=== PATIENT | female | born 1995 | race Caucasian/White ===

== ENCOUNTER 2021-10-14 00:07 | Inpatient (IN) | payer SELFPAY ==
[2021-10-14] MEDS: Lactated Ringers 1,000 ML IV SCH ×2 (00:10→14:49)
[2021-10-14] MEDS ORDERED: Terbutaline 1 MG/ML SDV SUBCUT PRN (00:12)
[2021-10-14] MEDS ORDERED: Misoprostol 200 MCG Tab PO PRN (00:12)
[2021-10-14] MEDS ORDERED: Lidocaine 1% 50 ML MDV INJECT PRN (00:12)
[2021-10-14] MEDS ORDERED: Sodium Chloride 0.9% 10 ML Syringe FLUSH PRN (00:12)
[2021-10-14] MEDS ORDERED: Carboprost Tromethamine 250 MCG/1 ML Amp IM PRN (00:12)
[2021-10-14] MEDS ORDERED: Sodium Chloride 0.9% 2.5 ML Syringe FLUSH PRN (00:12)
[2021-10-14] MEDS ORDERED: Sodium Chloride 0.9% 20 ML SDV IV PRN (00:12)
[2021-10-14] MEDS ORDERED: Misoprostol 25 MCG (1/4 of 100 MCG) Tab VAG PRN (00:12)
[2021-10-14] MEDS ORDERED: Tranexamic Acid 1,000 MG in Sodium Chloride 0.9% 100 ML IV PRN (00:12)
[2021-10-14] MEDS ORDERED: Methylergonovine 0.2 MG/1 ML Amp IM PRN (00:12)
[2021-10-14] MEDS ORDERED: Butorphanol 1 MG/ML SDV IVPUSH PRN (00:12)
[2021-10-14] MEDS ORDERED: Water For Irrigation,Sterile 1,000 ML Container IRR PRN (00:12)
[2021-10-14] MEDS ORDERED: Oxytocin/0.9 % Sodium Chloride 30 UNIT/500 ML BAG IV SCH ×2 (00:15)
[2021-10-14] MEDS: Misoprostol 25 MCG (1/4 of 100 MCG) Tab VAG PRN ×2 (04:43→08:46)
[2021-10-14] MEDS ORDERED: ePHEDrine 50 MG/ML SDV IVPUSH PRN ×2 (11:33)
[2021-10-14] MEDS ORDERED: Phenylephrine HCl In 0.9% NaCl 1 MG/10 ML Vial IVPUSH SCH (11:45)
[2021-10-14] MEDS ORDERED: Ropivacaine HCl/PF 400 MG in Premix Bag 1 BAG EPIDUR SCH (11:45)
[2021-10-14] MEDS ORDERED: Acetaminophen 500 MG Tab PO PRN (16:32)
[2021-10-14] MEDS ORDERED: Witch Hazel Medicated Pads 40/Jar TOP PRN (16:32)
[2021-10-14] MEDS ORDERED: Lanolin 100% Cream 7 GM Tube TOP PRN (16:32)
[2021-10-14] MEDS ORDERED: Bisacodyl 10 MG Supp RECTAL PRN (16:32)
[2021-10-14] MEDS ORDERED: Benzocaine/Menthol 20%-0.5% Spray 78 GM Cannister TOP PRN (16:32)
[2021-10-14] MEDS ORDERED: Ibuprofen 400 MG Tab PO PRN (16:32)
[2021-10-14] MEDS ORDERED: oxyCODONE 5 MG Tab PO PRN (16:32)
[2021-10-14] MEDS ORDERED: Docusate Sodium 100 MG Cap PO PRN (16:32)
[2021-10-14] MEDS: Ibuprofen 800 MG Tab PO PRN (19:58)
[2021-10-15] MEDS: Acetaminophen 500 MG Tab PO PRN ×2 (01:10→18:25)
[2021-10-15] MEDS: Ibuprofen 800 MG Tab PO PRN (11:21)
== END 2021-10-15 18:48 | disposition home or self-care (01) | DRG 807 ==
LOC: MW.OBCHECK 00:07 → MW.OB 00:10 → MW.OBCHECK 00:12 → MW.OB 00:12 → OBSVTOIN 16:08 → MW.OB 18:24
PROVIDERS: ADMIT Obstetrics & Gynecology; ATTEND Obstetrics & Gynecology
PROC: 10E0XZZ Delivery of Products of Conception, External Approach (ICD-10-PCS; principal; 2021-10-14)
PROC: 0KQM0ZZ Repair Perineum Muscle, Open Approach (ICD-10-PCS; 2021-10-14)
PROC: 10907ZC Drainage of Amniotic Fluid, Therapeutic from Products of Conception, Via Natural or Artificial Opening (ICD-10-PCS; 2021-10-14)
PROC: 3E0P7VZ Introduction of Hormone into Female Reproductive, Via Natural or Artificial Opening (ICD-10-PCS; 2021-10-14)
PROC: 3E0R3BZ Introduction of Anesthetic Agent into Spinal Canal, Percutaneous Approach (ICD-10-PCS; 2021-10-14)
PROC: 00HU33Z Insertion of Infusion Device into Spinal Canal, Percutaneous Approach (ICD-10-PCS; 2021-10-14)
DX: O40.3XX0 Polyhydramnios, third trimester, not applicable or unspecified (principal); Z37.0 Single live birth; Z3A.39 39 weeks gestation of pregnancy; O76 Abnormality in fetal heart rate and rhythm complicating labor and delivery; O69.81X0 Labor and delivery complicated by cord around neck, without compression, not applicable or unspecified; Z20.822 Contact with and (suspected) exposure to COVID-19
CPT/HCPCS: 36415; 51702; 59025; 59409; 82803; 85014; 85018; 85027; 86592; 86850; 86900; 86901; A9270-GY; J2590; J7120; U0002